=== PATIENT | male | born 1990 | race Caucasian/White ===

== ENCOUNTER 2022-05-30 01:03 | Emergency (ER) | payer SELFPAY ==
[~2022-05-30] VITALS: Ht 165.1 cm; Wt 59.0 kg
--- NOTE | 2022-05-30 01:30 | NUR ---
[id number] FROM [facility] STATION C/O ETOH FOUND ON GROUND. PT VSS, NO ACUTE DISTRESS NOTED.
[2022-05-30 05:49] VITALS: BP 124/70
--- NOTE | 2022-05-30 06:23 | NUR ---
Patient discharged to home in stable condition. Written and verbal after care instructions given. Patient verbalizes understanding of instruction.
== END 2022-05-30 06:25 | disposition home or self-care (01) ==
LOC: ER 01:35
DX: F10.129 Alcohol abuse with intoxication, unspecified (principal); Y90.9 Presence of alcohol in blood, level not specified
CPT/HCPCS: 70450-TC